=== PATIENT | female | born 1985 | race Caucasian/White ===

== ENCOUNTER 2016-06-14 18:48 | Emergency (ER) | payer BC ==
[2016-06-14 19:08] VITALS: BP 118/55
--- NOTE | 2016-06-14 19:16 | UC ---
Throat Pain/Nasal Jimmy HPI - HPI Summary HPI Summary: RIGHT EAR PAIN AND SORE THROAT X 2 DAYS NO NASAL CONGESTION , NO FEVER, NO COUGH - History of Current Complaint Chief Complaint: UCGeneralIllness Stated Complaint: SORE THROAT/EAR PAIN Time Seen by Provider: 06/14/16 18:50 Hx Obtained From: Patient Hx Last Menstrual Period: 13 MONTHS POST- Onset/Duration: Gradual Onset, Lasting Days - 2, Still Present Severity: Moderate Cough: None Associated Signs & Symptoms: Negative: Wheezing, Hoarseness, Sinus Discomfort, Nasal Discharge, Fever, Vomiting, Rash - Allergies/Home Medications Allergies/Adverse Reactions: Allergies Allergy/AdvReac Type Severity Reaction Status Date / Time Indomethacin [From Indocin] Allergy Severe Hallucinati Verified 06/14/16 19:08 ons Home Medications: Home Medications Sertraline* [Zoloft*] 75 mg PO DAILY 06/14/16 [History Confirmed 06/14/16] PMH/Surg Hx/FS Hx/Imm Hx Respiratory History Of: Reports: Asthma - as a kid Psychological History Of: Reports: Anxiety - Surgical History Surgical History: Yes Surgery Procedure, Year, and Place: wisdom teeth, r foot surgery - Family History Known Family History: Negative: Diabetes - Social History Alcohol Use: None Substance Use Type: None Smoking Status (MU): Never Smoked Tobacco Type: Cigarettes Have You Smoked in the Last Year: No - Immunization History Most Recent Influenza Vaccination: [id number] Most Recent Tetanus Shot: has not received Most Recent Pneumonia Vaccination: has not received Review of Systems Constitutional: Negative Skin: Negative Eyes: Negative ENT: Sore Throat, Ear Ache Respiratory: Negative Cardiovascular: Negative All Other Systems Reviewed And Are Negative: Yes Physical Exam Triage Information Reviewed: Yes Appearance: Well-Appearing, No Pain Distress, Well-Nourished Vital Signs: Initial Vital Signs Temp 98.1 F 06/14/16 19:04 Pulse 80 06/14/16 19:04 Resp 17 06/14/16 19:04 BP 118/55 06/14/16 19:04 Pulse Ox 100 06/14/16 19:04 Vital Signs Reviewed: Yes Eyes: Positive: Conjunctiva Clear ENT: Positive: Normal ENT inspection, Hearing grossly normal, Pharyngeal erythema, TMs normal. Negative: Nasal congestion, Nasal drainage, TM bulging, TM dull, TM red Neck exam: Normal Neck: Positive: Supple, Nontender, No Lymphadenopathy Respiratory: Positive: Chest non-tender, Lungs clear, Normal breath sounds, No respiratory distress Cardiovascular: Positive: RRR, No Murmur, Pulses Normal Skin Exam: Normal Throat Pain/Nasal Course/Dx - Differential Dx/Diagnosis Provider Diagnoses: VIRAL PHARYNGITIS. OTALGIA Discharge - Discharge Plan Condition: Stable Disposition: HOME Patient Education Materials: Earache (ED) Referrals: Iris Borja MD [Primary Care Provider] - If Needed Additional Instructions: MOST LIKELY VIRAL ILLNESS, NO NEED FOR ANTIBIOTICS REST, INCREASE FLUID, TYLENOL NEEDED FOR PAIN
== END 2016-06-14 19:18 | disposition home or self-care (01) ==
LOC: UCCORT 18:48
DX: J02.9 Acute pharyngitis, unspecified (principal); H92.01 Otalgia, right ear; F41.9 Anxiety disorder, unspecified
CPT/HCPCS: 99211; G0463

== ENCOUNTER 2016-06-22 16:07 | Emergency (ER) | payer BC ==
[2016-06-22 16:27] VITALS: BP 117/58
--- NOTE | 2016-06-22 16:36 | UC ---
Respiratory Complaint HPI - HPI Summary HPI Summary: Cough, h/a, ear pain x2 weeks. Was seen here last weekend, dx w/ viral. Pt is 29 weeks . 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 Feels some sinus pain and pressure. Had been seen by OB 2 days after being seen here and was told to take mucinex and anti-histamine which have not given any relief. No fever. + movement, no blood. cough is worsening, feels mild possibel wheezing. 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 no complications with . - History of Current Complaint Chief Complaint: UCGeneralIllness Stated Complaint: cough,upper respiratory Time Seen by Provider: 06/22/16 16:35 Hx Last Menstrual Period: 11/2015 - Allergies/Home Medications Allergies/Adverse Reactions: Allergies Allergy/AdvReac Type Severity Reaction Status Date / Time Indomethacin [From Indocin] Allergy Severe Hallucinati Verified 06/22/16 16:21 ons Home Medications: Home Medications Acetaminophen TAB* [Tylenol TAB*] 975 mg PO Q4H PRN 06/22/16 [History Confirmed 06/22/16] Cetirizine* [ZyrTEC 10 MG TAB*] 10 mg PO DAILY 06/22/16 [History Confirmed 06/22] guaiFENesin ER TAB [Mucinex*] 600 mg PO BID PRN 06/22/16 [History Confirmed ] PMH/Surg Hx/FS Hx/Imm Hx Previously Healthy: Yes Respiratory History Of: Reports: Asthma - as a kid Psychological History Of: Reports: Anxiety - Surgical History Surgical History: Yes Surgery Procedure, Year, and Place: wisdom teeth, r foot surgery - Family History Known Family History: Negative: Diabetes - Social History Alcohol Use: None Substance Use Type: None Smoking Status (MU): Never Smoked Tobacco Type: Cigarettes Have You Smoked in the Last Year: No - Immunization History Most Recent Influenza Vaccination: [id number] Most Recent Tetanus Shot: has not received Most Recent Pneumonia Vaccination: has not received Review of Systems Constitutional: Negative Skin: Negative Eyes: Negative ENT: Sore Throat, Ear Ache, Nasal Discharge, Other - sinus pressure Respiratory: Cough Cardiovascular: Negative Gastrointestinal: Negative Genitourinary: Negative Motor: Negative Neurovascular: Negative Musculoskeletal: Negative Neurological: Negative Psychological: Negative All Other Systems Reviewed And Are Negative: Yes Physical Exam Triage Information Reviewed: Yes Appearance: Well-Appearing, No Pain Distress, Well-Nourished Vital Signs: Initial Vital Signs Temp 97.6 F 06/22/16 16:22 Pulse 75 06/22/16 16:22 Resp 16 06/22/16 16:22 BP 117/58 06/22/16 16:22 Pulse Ox 99 06/22/16 16:22 Vital Signs Reviewed: Yes Eye Exam: Normal ENT Exam: Normal ENT: Positive: Pharyngeal erythema, TMs normal, Other: - + sinus tenderness frontal/maxillary. Negative: TM bulging, TM dull, TM red, Tonsillar swelling, Tonsillar exudate Dental Exam: Normal Neck exam: Normal Neck: Positive: Supple, Nontender, No Lymphadenopathy Respiratory Exam: Normal Respiratory: Positive: Lungs clear, Normal breath sounds, No respiratory distress, Decreased breath sounds - mild. Negative: Crackles, Rhonchi, Stridor , Wheezing Cardiovascular Exam: Normal Cardiovascular: Positive: RRR, No Murmur, Pulses Normal, Brisk Capillary Refill Abdomen Description: Positive: Nontender, Soft - gravid Musculoskeletal Exam: Normal Neurological Exam: Normal Psychological Exam: Normal Skin Exam: Normal UC Diagnostic Evaluation - Laboratory O2 Sat by Pulse Oximetry: 99 Respiratory Course/Dx - Differential Dx/Diagnosis Differential Diagnosis/HQI/PQRI: Asthma, Bronchitis, Lower Resp Infection, Sinusitis Provider Diagnoses: Bronchitis, sinusitis, Discharge - Discharge Plan Condition: Stable Disposition: HOME Prescriptions: Albuterol HFA INHALER* [Ventolin HFA Inhaler*] 2 puff INH Q4H PRN #1 mdi PRN Reason: Cough Amoxicillin (*) [Amoxicillin 875 MG (*)] 875 mg PO BID #20 tab Patient Education Materials: Sinusitis (ED), Acute Bronchitis (ED) Forms: *Work Release Referrals: Iris Borja MD [Primary Care Provider] - 3 Days Additional Instructions: Continue with plenty of fluids and rest. Make sure that the baby is moving at least 10 time per hour. The inhaler will help the cough. Make sure to take a probiotic daily while you are on the antibiotic to prevent c diff.
== END 2016-06-22 17:06 | disposition home or self-care (01) ==
LOC: UCCORT 16:07
DX: O26.93 Pregnancy related conditions, unspecified, third trimester (principal); J40 Bronchitis, not specified as acute or chronic; J32.9 Chronic sinusitis, unspecified; Z3A.29 29 weeks gestation of pregnancy; F41.9 Anxiety disorder, unspecified
CPT/HCPCS: 99212; G0463

== ENCOUNTER 2016-07-19 15:47 | Emergency (ER) | payer BC ==
[2016-07-19 17:35] VITALS: BP 132/72
--- NOTE | 2016-07-19 18:18 | UC ---
Respiratory Complaint HPI - History of Current Complaint Chief Complaint: UCRespiratory Stated Complaint: FLU SYMPTOMS 18 WEEKS Hx Obtained From: Patient Hx Last Menstrual Period: NOV 2015 ?: Yes Onset/Duration: Sudden Onset, Lasting Days - 1, Worse Since - today with increased congestion. Had coughing fits last night. Timing: Constant Severity Initially: Mild Severity Currently: Moderate Character: Cough: Productive Aggravating Factors: Allergens Alleviating Factors: Nothing Associated Signs And Symptoms: Positive: Chills, URI, Nasal Congestion Related History: Seasonal Allergies - Risk Factors Pulmonary Embolism Risk Factors: Cardiac Risk Factors: Negative Pseudomonas Risk Factors: Negative Tuberculosis Risk Factors: Negative - Allergies/Home Medications Allergies/Adverse Reactions: Allergies Allergy/AdvReac Type Severity Reaction Status Date / Time Indomethacin [From Indocin] Allergy Severe Hallucinati Verified 07/19/16 17:21 ons PMH/Surg Hx/FS Hx/Imm Hx Respiratory History Of: Reports: Asthma - as a kid Psychological History Of: Reports: Anxiety - Surgical History Surgical History: Yes Surgery Procedure, Year, and Place: wisdom teeth, r foot surgery - Family History Known Family History: Positive: Cardiac Disease, Hypertension, Diabetes - Social History Occupation: Employed Full-time Lives: With Family Alcohol Use: None Substance Use Type: None Smoking Status (MU): Never Smoked Tobacco Type: Cigarettes Have You Smoked in the Last Year: No - Immunization History Most Recent Influenza Vaccination: [id number] Most Recent Tetanus Shot: has not received Most Recent Pneumonia Vaccination: has not received Review of Systems Constitutional: Chills ENT: Sore Throat, Nasal Discharge Respiratory: Cough All Other Systems Reviewed And Are Negative: Yes Physical Exam Triage Information Reviewed: Yes Appearance: No Pain Distress, Well-Nourished - , Ill-Appearing Vital Signs: Initial Vital Signs Temp 98.2 F 07/19/16 17:23 Pulse 62 07/19/16 17:23 Resp 20 07/19/16 17:23 BP 132/72 07/19/16 17:23 Pulse Ox 99 07/19/16 17:23 Vital Signs Reviewed: Yes Eyes: Positive: Conjunctiva Clear ENT: Positive: Nasal congestion - with allergic changes., TMs normal Neck exam: Normal Respiratory: Positive: Lungs clear, Wheezing - expiratory wheeze with cough Cardiovascular Exam: Normal Abdomen Description: Positive: Nontender - Gravid, fetus vertex presentation. FHT 120 bpm, Soft Musculoskeletal Exam: Normal Neurological Exam: Normal Psychological Exam: Normal Skin Exam: Normal UC Diagnostic Evaluation - Laboratory O2 Sat by Pulse Oximetry: 99 Respiratory Course/Dx - Differential Dx/Diagnosis Differential Diagnosis/HQI/PQRI: Asthma, Lower Resp Infection, Sinusitis Provider Diagnoses: Acute URI. Acute bronchospasm. Allergic rhinitis Discharge - Discharge Plan Condition: Stable Disposition: HOME Prescriptions: predniSONE TAB* [Deltasone TAB*] 20 mg PO DAILY #18 tab Patient Education Materials: Upper Respiratory Infection (ED), Bronchospasm (ED ), Prednisone (By mouth), Allergic Rhinitis (ED) Additional Instructions: NASAL SPRAYS AND DROPS: Afrin in the PUMP/ MIST bottle. Tilt your head down and look at the floor while doing a strong sniff with the spray. Decongestant nasal sprays and drops often give dramatic relief from congestion. They are often recommended for patients with sinus infection to assist with sinus drainage. Persons with high blood pressure should consult the doctor before using these nasal sprays. Afrin and Piotr-Synephrine are common [id number] preparations. They should not be used for more than five days, as "rebound" congestion can occur - - the congestion flares as the drug wears off. A way of dealing with this rebound congestion problem is to medicate only one nostril each time, allowing the other nostril to recover from the medicine' s effects. When you no longer need the drug during the day, spray only one nostril each night. This helps you sleep well without severe rebound congestion. Call the doctor if you develop severe headache, palpitations, or chest pain. Lumafit SINUS RINSE: CHECK OUT AT [employer] [place] Saline nasal wash helps with mucous, allergies and congestion. It can be used up to twice a day or only as needed. Use lukewarm tap water. It does not have to be sterilized or distilled water. Do 1/3 on each side and snort out of both nostrils. Repeat the process with 1/6 of the bottle on each side with snorting in between to finish the solution in the bottle
== END 2016-07-19 18:50 | disposition home or self-care (01) ==
LOC: UCCORT 15:47
DX: O26.892 Other specified pregnancy related conditions, second trimester (principal); J06.9 Acute upper respiratory infection, unspecified; J98.01 Acute bronchospasm; J30.9 Allergic rhinitis, unspecified; Z3A.18 18 weeks gestation of pregnancy; F41.9 Anxiety disorder, unspecified
CPT/HCPCS: 87502; 99212; G0463

== ENCOUNTER 2016-08-30 01:58 | Inpatient (IN) | payer BC ==
[2016-08-30] MEDS ORDERED: OBEPIDURAL* 0 ML ONE (03:55)
[2016-08-30 04:23] LABS: Hematocrit 37 % (35-47); Hemoglobin 12.6 g/dl (12.0-16.0); Mean Corpuscular HGB Conc 34 g/dl (31-36); Mean Corpuscular Hemoglobin 30 pg (27-31); Mean Corpuscular Volume 88 fL (80-97); Mean Platelet Volume 9 um3 (7.4-10.4); Red Blood Count 4.22 10^6/ul (4.0-5.4); Red Cell Distribution Width 14 % (10.5-15); White Blood Count 12.5 10^3/ul (3.5-10.8)
[2016-08-30] MEDS ORDERED: Oxytocin in LR* 20 UNITS/1,000 ML BAG IVPB ONE (04:54)
[2016-08-30] MEDS ORDERED: Acetaminophen TAB* 325 MG PO PRN (05:46)
[2016-08-30] MEDS ORDERED: Dibucaine 1% 28.35 GM TUBE PR PRN (05:46)
[2016-08-30] MEDS ORDERED: Witch Hazel PAD* JAR TOPICAL PRN (05:46)
[2016-08-30] MEDS ORDERED: Ibuprofen TAB* 600 MG ONE (05:50)
[2016-08-30] MEDS ORDERED: oxyCODONE/Acetamin 5/325 MG* TAB PO PRN (05:52)
[2016-08-30] MEDS ORDERED: Oxytocin in LR* 20 UNITS/1,000 ML BAG IVPB SCH (06:00)
[2016-08-30] MEDS: Ibuprofen TAB* 600 MG PO PRN ×3 (06:05→17:54)
[2016-08-30] MEDS: Sertraline* 25 MG TAB PO SCH (09:00)
[2016-08-30] MEDS: Docusate CAP* 100 MG PO SCH ×3 (09:00→20:02)
[2016-08-30 23:47] VITALS: BP 135/71
[2016-08-31] MEDS: Ibuprofen TAB* 600 MG PO PRN ×2 (08:51→15:45)
[2016-08-31] MEDS: Docusate CAP* 100 MG PO SCH ×3 (08:51→20:09)
[2016-08-31] MEDS: Sertraline* 25 MG TAB PO SCH (08:52)
[2016-08-31] MEDS ORDERED: Ferrous Gluconate TAB* 324 MG TAB PO SCH (09:00)
[2016-08-31 10:04] LABS: Hematocrit 36 % (35-47); Hemoglobin 11.7 g/dl (12.0-16.0); Mean Corpuscular HGB Conc 33 g/dl (31-36); Mean Corpuscular Hemoglobin 30 pg (27-31); Mean Corpuscular Volume 91 fL (80-97); Mean Platelet Volume 9 um3 (7.4-10.4); Red Blood Count 3.92 10^6/ul (4.0-5.4); Red Cell Distribution Width 14 % (10.5-15); White Blood Count 11.8 10^3/ul (3.5-10.8)
[2016-09-01] MEDS: Ibuprofen TAB* 600 MG PO PRN (08:22)
[2016-09-01] MEDS: Sertraline* 25 MG TAB PO SCH (08:23)
[2016-09-01] MEDS: Docusate CAP* 100 MG PO SCH (08:24)
== END 2016-09-01 09:58 | disposition home or self-care (01) | DRG 560 ==
LOC: MCHOBOUT 01:58 → MCHOB 02:49
PROVIDERS: ADMIT Midwife; ATTEND Midwife
PROC: 10E0XZZ Delivery of Products of Conception, External Approach (ICD-10-PCS; principal; 2016-08-30)
PROC: 0HQ9XZZ Repair Perineum Skin, External Approach (ICD-10-PCS; 2016-08-30)
DX: O77.0 Labor and delivery complicated by meconium in amniotic fluid (principal); O99.344 Other mental disorders complicating childbirth; F41.9 Anxiety disorder, unspecified; O70.0 First degree perineal laceration during delivery; Z3A.39 39 weeks gestation of pregnancy; Z37.0 Single live birth
CPT/HCPCS: 36415; 85025; 85027; 86850; 86900; 86901; A9270-GY

== ENCOUNTER 2017-03-01 11:14 | Emergency (ER) | payer BC ==
--- NOTE | 2017-03-01 11:22 | UC ---
Ear Complaint HPI - HPI Summary HPI Summary: 31 YEAR OLD FEMALE PRESENTS WITH COMPLAINS OF SINUS CONGESTION. - History of Current Complaint Stated Complaint: EAR ACHE Time Seen by Provider: 03/01/17 11:22 Hx Obtained From: Patient Hx Last Menstrual Period: NOV 2015 Onset/Duration: Sudden Onset Severity Initially: Moderate Severity Currently: Moderate Pain Scale Used: 0-10 Numeric - 5 Aggravating Factors: Nothing Alleviating Factors: Nothing - Allergies/Home Medications Allergies/Adverse Reactions: Allergies Allergy/AdvReac Type Severity Reaction Status Date / Time Indomethacin [From Indocin] Allergy Severe Hallucinati Verified 03/01/17 11:24 ons PMH/Surg Hx/FS Hx/Imm Hx Previously Healthy: Yes - Surgical History Surgical History: Yes Surgery Procedure, Year, and Place: wisdom teeth, r foot surgery - Family History Known Family History: Positive: Cardiac Disease, Hypertension, Diabetes - Social History Alcohol Use: None Substance Use Type: None Smoking Status (MU): Former Smoker Type: Cigarettes Have You Smoked in the Last Year: No Household Exposure Type: Cigarettes - Immunization History Most Recent Influenza Vaccination: [id number] Most Recent Tetanus Shot: has not received Most Recent Pneumonia Vaccination: has not received Review of Systems Constitutional: Negative Skin: Negative Eyes: Negative ENT: Ear Ache, Nasal Discharge, Sinus Congestion, Sinus Pain/Tenderness Respiratory: Negative Cardiovascular: Negative Gastrointestinal: Negative Genitourinary: Negative Motor: Negative Neurovascular: Negative Musculoskeletal: Negative Neurological: Negative Psychological: Negative All Other Systems Reviewed And Are Negative: Yes Physical Exam Triage Information Reviewed: Yes Vital Signs Reviewed: Yes Eye Exam: Normal ENT: Positive: Nasal congestion, Nasal drainage, Tonsillar swelling, Sinus tenderness Dental Exam: Normal Neck exam: Normal Neck: Positive: 1 Respiratory Exam: Normal Cardiovascular Exam: Normal Abdominal Exam: Normal Musculoskeletal Exam: Normal Neurological Exam: Normal Psychological Exam: Normal Skin Exam: Normal Ear Complaint Course/Dx - Differential Dx/Diagnosis Provider Diagnoses: SINUSITIS Discharge - Discharge Plan Condition: Stable Disposition: HOME Prescriptions: Amoxicillin PO (*) [Amoxicillin 875 MG (*)] 875 mg PO BID #20 tab Fluticasone NASAL SPRAY 50MCG* [Flonase NASAL SPRAY 50MCG*] 2 spray BOTH NARES DAILY PRN #1 btl PRN Reason: Congestion LoraTADine TAB(NF) [Claritin 10 MG TAB(NF)] 10 mg PO DAILY #30 tab Patient Education Materials: Sinusitis (ED) Referrals: Iris Borja MD [Primary Care Provider] -
[2017-03-01 11:30] VITALS: BP 115/60
== END 2017-03-01 12:06 | disposition home or self-care (01) ==
LOC: UCEAST 11:14
DX: J32.9 Chronic sinusitis, unspecified (principal); H92.09 Otalgia, unspecified ear; Z88.6 Allergy status to analgesic agent; Z87.891 Personal history of nicotine dependence
CPT/HCPCS: 99212; G0463

== ENCOUNTER → 2017-08-25 08:10 | Day surgery (SDC) | payer BC ==
[~2017-08-25 08:10] MED LIST: Acetaminophen TAB* 325 MG ONE; Acetaminophen TAB* 325 MG PO PRN; Atracurium* 10 MG/ML 10 ML VIAL ONE; Atropine 1MG/ML INJ* 1 ML VIAL ONE; Bacitracin OPHTH.OINT* 3.5 GM ONE; Buffered Lidocaine 0.9% SYRIN* 5 ML/SYR SYRINGE INTRADERM ONE; Bupivacaine 0.5% SDV PF* 30ML VIAL ONE; Dexamethasone IV* 4 MG/ML 1 ML (4 MG) ONE; DiMENhydriNATE IV* 50 MG/ML VIAL IV PUSH PRN; Ibuprofen TAB* 400 MG ONE; Ibuprofen TAB* 400 MG PO ONE; Ketorolac INJ* 30 MG/ML 1 ML VIAL ONE; Lidocaine 2% PF * 5 ML VIAL ONE; Naloxone* 0.4 MG/ML 1 ML VIAL IV PRN; Neostigmine Methylsulfate* 1 MG/ML 10 ML VIAL (1 mg/ml) ONE; Ondansetron INJ* 2 MG/ML VIAL IV PRN; Propofol* 10 MG/ML 20 ML BTL IV PUSH ONE; Saline, Bacteriostatic* 30 ML VIAL ONE; Scopolamine 1.5 mg* PATCH ONE; Scopolamine 1.5 mg* PATCH TRANSDERM ONE; Scopolamine PATCH Remove* 1 NOTE MISC PATCH OFF ONE; Sodium Citrate/Citric Acid* 15 ML UDC ONE; Sodium Citrate/Citric Acid* 15 ML UDC PO ONE; ceFAZolin 2 GM PREMIX (*) 2 GM/50 ML BAG IVPB ONE; fentaNYL* 50 MCG/ML 2 ML VIAL (100 MCG VIAL) IV PRN; fentaNYL* 50 MCG/ML 2 ML VIAL (100 MCG VIAL) ONE; oxyCODONE TAB* 5 MG TAB ONE; oxyCODONE TAB* 5 MG TAB PO PRN
--- NOTE | 2017-08-25 11:10 | OP ---
Operative Report - Blank - Operative Report Date of Operation: 08/25/17 Note: preoperative dx: calculus of gallbladder without cholecystitis without obstruction postoperative dx: same procedure: laparoscopic cholecystectomy anesthesia: GET surgeon: Hardeep assist: Bebe Carrillo ebl: less than 20cc specimen: gallbladder fluids: 1L lactated ringers drains: none findings: dictated
[2017-08-25 12:39] VITALS: BP 117/64
--- NOTE | 2017-08-26 08:25 | OP ---
CC: Iris Borja MD * DATE OF OPERATION: 08/25/17 - [facility] DATE OF : 85 SURGEON: Toribio Meier MD AERIAL PHOTOGRAPHER: MANDI Byrnes ANESTHESIOLOGIST: Dr. Cabrales. ANESTHESIA: General endotracheal. PRE-OP DIAGNOSIS: Symptomatic gallstones. POST-OP DIAGNOSIS: Symptomatic gallstones. OPERATIVE PROCEDURE: Laparoscopic cholecystectomy. ESTIMATED BLOOD LOSS: Minimal. IV FLUIDS: Crystalloids. SPECIMENS: Gallbladder. DRAINS: None. COMPLICATIONS: None. COUNTS: Instrument, needle, and sponge counts were correct. DESCRIPTION OF PROCEDURE: The patient was brought to the operating room and placed on the table supine. Sequential compression devices were placed on both lower extremities. General anesthesia was administered. The abdomen was prepped and draped in the usual sterile fashion. Time-out was performed. Local anesthetic was infiltrated into the skin and soft tissue prior to making each incision. Entry into the abdomen was through a transumbilical incision using an open technique. After accessing the peritoneal cavity, a 5-mm trocar was placed and carbon dioxide was insufflated to a pressure of 15 mmHg. Under direct visualization, additional trocars were placed including a 12-mm trocar in the subxiphoid position and two 5-mm trocars in the right upper quadrant. The liver appeared normal. The gallbladder appeared to be chronically inflamed with no acute inflammation, wall thickening or pericholecystic fluid noted. There was adhesions of omentum to the gallbladder fundus, which were taken down using combination of sharp dissection and cautery. The gallbladder fundus was grasped and retracted superiorly and then the infundibulum was grasped and retracted caudad. The peritoneum and rest of the infundibulum was incised with cautery and peeled away to reveal the cystic duct, which was bluntly dissected out as was the cystic artery. Critical view was obtained and then the structures were clipped and divided and the gallbladder was freed from attachments to the liver using the cautery and sharp dissection. Subsequently, the gallbladder was retrieved using endoscopic retrieval bag. Hemostasis was assured. Clips were noted to be intact. Ports removed under direct visualization and carbon dioxide was released. The skin incisions were all closed with 4-0 Monocryl in subcuticular fashion and Steri-Strips were applied. The patient tolerated this procedure well, was extubated and transferred to Recovery in stable condition. [id number]/[facility] #: [id number] DOTTIE
== END | disposition home or self-care (01) ==
LOC: OR 08:10
PROVIDERS: ATTEND Surgery
DX: K81.1 Chronic cholecystitis (principal); Z72.0 Tobacco use; G47.33 Obstructive sleep apnea (adult) (pediatric); F32.9 Major depressive disorder, single episode, unspecified; R53.83 Other fatigue
CPT/HCPCS: 81025; 88304; A9270-GY; J0461; J0690; J1100; J1885; J2704; J2710; J3010

== ENCOUNTER 2017-09-07 16:59 | Emergency (ER) | payer BC ==
[2017-09-07 17:13] VITALS: BP 127/69
--- NOTE | 2017-09-07 17:30 | UC ---
Hand/Wrist HPI - HPI Summary HPI Summary: 31 yo female presents with right hand pain and swelling since this morning. 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 This morning she woke up and her right hand was swollen, mildly warm, and tender. As the day progressed it got worse. She took some ibuprofen and benadryl and thinks it has improved, but wanted to have it checked. Denies injury or contact with any new materials. - History Of Current Complaint Chief Complaint: UCUpperExtremity Stated Complaint: SWOLLEN HAND Time Seen by Provider: 09/07/17 17:30 Hx Obtained From: Patient Hx Last Menstrual Period: one month ago Onset/Duration: Sudden Onset Severity Initially: Mild Severity Currently: Mild Pain Intensity: 2 Pain Scale Used: 0-10 Numeric - Allergies/Home Medications Allergies/Adverse Reactions: Allergies Allergy/AdvReac Type Severity Reaction Status Date / Time indomethacin [From Indocin] Allergy Hallucinati Verified 09/07/17 17:13 ons PMH/Surg Hx/FS Hx/Imm Hx Previously Healthy: Yes Psychological History: Anxiety - Surgical History Surgical History: Yes Surgery Procedure, Year, and Place: wisdom teeth-[facility]. RIGHT foot surgery-[facility]. Gallbladder 08/25/17 - Family History Known Family History: Positive: Cardiac Disease, Hypertension, Diabetes - Social History Occupation: Employed Full-time Lives: With Family Alcohol Use: None Substance Use Type: Prescribed Smoking Status (MU): Former Smoker Type: Cigarettes Amount Used/How Often: ON AND OFF SINCE 2003 Have You Smoked in the Last Year: No Household Exposure Type: Cigarettes - Immunization History Most Recent Influenza Vaccination: [id number] Most Recent Tetanus Shot: has not received Most Recent Pneumonia Vaccination: has not received Review of Systems Constitutional: Negative Skin: Other - Right hand pain and swelling Respiratory: Negative Cardiovascular: Negative Musculoskeletal: Negative Neurological: Negative Psychological: Negative All Other Systems Reviewed And Are Negative: Yes Physical Exam - Summary Physical Exam Summary: GENERAL: NAD. WDWN. No pain distress. SKIN: Right hand: Moderate edema about right hand. Mild warmth. No open wounds. No streaking, bleeding, or drainage. NECK: Supple. Nontender. No lymphadenopathy. CHEST: No accessory muscle use. Breathing comfortably and in no distress. CV: Pulses intact radial and ulnar. MSK: FROM. Strength 5/5 with fitness specialist strength. NEURO: Alert. Sensations intact right hand and all fingers. PSYCH: Age appropriate behavior. Triage Information Reviewed: Yes Vital Signs: Initial Vital Signs Temp 98.5 F 09/07/17 17:10 Pulse 56 09/07/17 17:10 Resp 18 09/07/17 17:10 BP 127/69 09/07/17 17:10 Pulse Ox 100 09/07/17 17:10 Hand/Wrist Course/Dx - Course Course Of Treatment: Right hand cellulitis - keflex. Continue ibuprofen and benadryl - Differential Dx/Diagnosis Provider Diagnoses: Right hand cellulitis Discharge - Sign-Out/Discharge Documenting (check all that apply): Discharge/Admit/Transfer - Discharge Plan Condition: Stable Disposition: HOME Prescriptions: Cephalexin CAP* [Keflex CAP*] 500 mg PO BID #14 cap Patient Education Materials: Cellulitis (DC) Referrals: Iris Borja MD [Primary Care Provider] - Additional Instructions: If you develop a fever, shortness of breath, chest pain, new or worsening symptoms - please call your PCP or go to the ED. - Billing Disposition and Condition Condition: STABLE Disposition: Home
== END 2017-09-07 18:15 | disposition home or self-care (01) ==
LOC: UCEAST 16:59
DX: L03.113 Cellulitis of right upper limb (principal); Z88.6 Allergy status to analgesic agent; Z87.891 Personal history of nicotine dependence
CPT/HCPCS: 99212; G0463

== ENCOUNTER 2017-09-30 12:41 | Emergency (ER) | payer BC, OTHER ==
--- OUTSIDE RECORDS SUMMARY | 2017-09-30 14:22 | XMS REPORT ---
:1985 External Reference #:[id number] Author Organization [employer] Address [address] [place] [address] [place] [address] Phone [phone] Care Team Providers Name Role Phone Iris Borja MD Primary Care Physician Unavailable Payers Type Date Identification Numbers Payment Provider Subscriber Commercial Policy Number: [id number] BS [employer]ets Melany Falk PayID: [id number] [address] [address] [place] [address] Problems Date Description Provider Status Onset: 12/20/2015 Difficulty breathing Delilah Pat MD Active Onset: 12/20/2015 Hypersomnia, unspecified Delilah Pat MD Active Family History Date Family Member(s) Problem(s) Comments General Diabetes MGF General Heart Disease MGF Father Diabetes Mother Kidney Disease Mother Sleep Apnea Mother Breast Cancer Social History Type Date Description Comments Marital Status 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 Cigarette Use Occasionally Smokes Cigarettes ETOH Use Occasionally consumes alcohol Recreational Drug Use Denies Drug Use Smoking Patient is a former smoker 2017 Daily Caffeine Consumes on average 1 cup of regular coffee per day Exercise Type/Frequency Exercises rarely Walks at work, 5x per week Allergies, Adverse Reactions, Alerts Date Description Reaction Status Severity Comments 12/20/2015 Indocin active Medications Medication Date Status Form Strength Qnty SIG Indications Ordering Provider Zoloft Active Tablets 75mg 1 tab daily Unknown 016 1 by mouth every day 19 Hx Tablets 1 by mouth Unknown 016 every day Probiotic Hx Capsules 1 by mouth Unknown 016 every day Adrenal C Hx Tablets as directed Unknown Formula 016 Vitamin B-12 Hx Tablets Sub 1 by mouth Unknown 016 every day Probiotic 00/0 Hx Capsules 1 Unknown Daily 000 by mouth every day [place] 0 Hx 2 daily Unknown Lectin 000 Fenugreek 0 Hx Capsules three tabs Unknown 000 three times a day Vital Signs Date Vital Result Comment 09/03/2017 Heart Rate 90 /min BP Systolic Sitting 126 mmHg BP Diastolic Sitting 72 mmHg Respiratory Rate 18 /min Body Temperature 97.6 F 08/03/2017 Height 67 inches 5'7" Weight 215.00 lb Heart Rate 64 /min BP Systolic 126 mmHg BP Diastolic 70 mmHg Respiratory Rate 16 /min Body Temperature 97.3 F BMI (Body Mass Index) 33.7 kg/m2 02/11/2017 Height 67 inches 5'7" Weight 214.38 lb Heart Rate 70 /min BP Systolic Sitting 120 mmHg Lue large cuff BP Diastolic Sitting 72 mmHg Lue large cuff Respiratory Rate 16 /min O2 % BldC Oximetry 98 % On Ra BMI (Body Mass Index) 33.6 kg/m2 12/25/2016 Heart Rate 72 /min BP Systolic Sitting 130 mmHg BP Diastolic Sitting 80 mmHg Respiratory Rate 16 /min Body Temperature 98.0 F 10/03/2016 Height 67 inches 5'7" Weight 208.00 lb Heart Rate 74 /min BP Systolic Sitting 108 mmHg BP Diastolic Sitting 74 mmHg Respiratory Rate 20 /min O2 % BldC Oximetry 98 % room air BMI (Body Mass Index) 32.6 kg/m2 07/09/2016 Height 67 inches 5'7" Weight 224.00 lb Heart Rate 84 /min BP Systolic 130 mmHg BP Diastolic 80 mmHg Respiratory Rate 18 /min Body Temperature 97.2 F BMI (Body Mass Index) 35.1 kg/m2 01/30/2016 Height 67 inches 5'7" Weight 200.00 lb Heart Rate 74 /min BP Systolic Sitting 130 mmHg BP Diastolic Sitting 70 mmHg Respiratory Rate 16 /min O2 % BldC Oximetry 98 % BMI (Body Mass Index) 31.3 kg/m2 12/20/2015 Height 67 inches 5'7" Weight 194.00 lb Heart Rate 74 /min BP Systolic Sitting 126 mmHg BP Diastolic Sitting 78 mmHg Respiratory Rate 14 /min O2 % BldC Oximetry 98 % BMI (Body Mass Index) 30.4 kg/m2 Neck Circumference in inches 14 Results Test Date Test Result H/L Range Note Laboratory test 08/25/2017 Surgical Pathology SEE RESULT BELOW 1 finding 1 SEE RESULT BELOW Name: MEALNY FALK : [address]: Toribio Meier MD Acct: [id number] Unit: [id number] AGE: 31 Location: OR Re08/25/17 SEX: F Status: REG SDC SPEC: [id number] MATHEW: 08/25/17- SUBM DR: Toribio Meier MD REQ: [id number] RECD: 08/25/171205 STATUS: SOUT _ ORDERED: LEVEL 3 FINAL DIAGNOSIS Gallbladder, cholecystectomy: -- Chronic cholecystitis with polypoid cholesterolosis. -- No cholelithiasis identified. PRE-OPERATIVE DIAGNOSIS Gallstones GROSS DESCRIPTION The specimen is received in formalin labeled, Gallbladder, and consists of a 10.1 x 3.4 x 3.3 cm intact gallbladder. The serosa is glistening smooth purple-pink with scant adherent yellow fat. There are multiple yellow sessile mucosal polyps ranging from 0.1 cm to 0.5 cm in greatest dimension. The remaining mucosa is reticulated brown with abundant yellow stippling and the wall thickness averages 0.1 cm. Choleliths are not identified within the lumen or the container. Medical Nurse sections, one cassette. Signed by and Reported on: Migue Velazquez MD 1721 END OF REPORT DEPARTMENT OF PATHOLOGY, [address] [place] [address] Migue Velazquez M.D. Director [facility] # [id number] Procedures Date CPT Code Description Status 08/25/2017 20821 Laparoscopy Cholecystectomy Completed 08/25/2017 69773 Laparoscopy Cholecystectomy Completed 03/05/2016 49353 Polysomnography Sleep Staging 4+ Parameters Completed 01/08/2016 89079 Sleep Study Unattended,HRT Rate,Oxygen Sat,Resp Completed Effort/Airflow Encounters Type Date Location Provider CPT E/M Dx Office Visit 08/03/2017 [facility] [place], [address] K80.20 8:30a [facility] FACS Office Visit 02/11/2017 [facility] [address] G47.33 9:15a [facility] Office Visit 12/25/2016 [facility] [place], [address] K80.20 8:45a [facility] FACS Office Visit 10/03/2016 Pul[facility]ology And Sleep Mely Butts, [address]71 G47.33 11:30a [facility] [place], [facility]- G47.10 Office Visit 07/09/2016 3:45p [facility] [place], [address] K80.20 [facility] FACS K82.4 Office Visit 01/30/2016 8:45a Pul[facility]ology And Sleep Mely Butts, 88887 R06.83 [facility] [place], [employer]-BC G47.10 F41.9 Z33.1 Office Visit 12/20/2015 11:00a [facility] [address] R06.83 [facility] G47.10 E66.09 Z68.30 Plan of Care 09/03/2017 - Toribio Meier MD, FACSK82.4 Cholesterolosis of gallbladderFollow up :As needed
[2017-09-30 14:27] VITALS: BP 132/89
--- NOTE | 2017-09-30 15:15 | RAD ---
HISTORY: injury, shoulder injury COMPARISONS: None VIEWS: 4, Frontal internal rotation, external rotation, outlet, and axillary views of the right shoulder FINDINGS: BONE DENSITY: Normal. BONES: There is no displaced fracture. There is a sclerotic lesion of the proximal humeral diaphysis measuring approximately 1.4 cm. JOINTS: There is no arthropathy. ALIGNMENT: There is no dislocation. SOFT TISSUES: Unremarkable. OTHER FINDINGS: None. IMPRESSION: SCLEROTIC LESION OF THE PROXIMAL HUMERUS SUGGESTIVE OF A GIANT BONE ISLAND. NO ACUTE OSSEOUS INJURY. IF SYMPTOMS PERSIST, RECOMMEND REPEAT IMAGING
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
== END 2017-09-30 15:57 | disposition home or self-care (01) ==
LOC: UCEAST 12:41
DX: S40.011A Contusion of right shoulder, initial encounter (principal); W50.0XXA Accidental hit or strike by another person, initial encounter; Y93.9 Activity, unspecified; Y92.215 Trade school as the place of occurrence of the external cause; Y99.0 Civilian activity done for income or pay; Z88.6 Allergy status to analgesic agent; Z82.49 Family history of ischemic heart disease and other diseases of the circulatory system; Z83.3 Family history of diabetes mellitus; Z87.891 Personal history of nicotine dependence
CPT/HCPCS: 84702; 99201; G0463

== ENCOUNTER 2018-12-22 20:47 | Emergency (ER) | payer BC ==
--- OUTSIDE RECORDS SUMMARY | 2018-12-22 20:52 | XMS REPORT | Continuity of Care Document ---
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 Onset: 12/01/2011 Viral disease Vince Storey M.D. Onset: 10/15/2013 Social History Type Date Description Comments Sex Unknown Tobacco Use Start: Unknown Nonsmoker Tobacco Use Start: Unknown Nonsmoker Smoking Status Reviewed: 12/07/17 Nonsmoker Allergies, Adverse Reactions, Alerts Active Allergies Reaction Severity Comments Date Indocin hallucinations 06/16/2011 Medications Active Medications SIG Qnty Indications Ordering Provider Date Trimethoprim 1-2 drops 10ml H10.89 Amaay 12/14/2018 Sulfate/Polymyxin B affected eye Tamar, REBA Sulfate four times a day x 3 days 31216-4.1Unit/ML-% Solution Zoloft 1 1/2 by mouth 135tabs Iris Walsh 50mg Tablets every day Reginaldo Borja Probiotic Unknown Berberine Complex Unknown [phone] Capsules Antril Unknown Medications Administered in Office Medication SIG Qnty Indications Ordering Provider Date TB Intradermal Test Unknown 09/21/2001 Injection TB Intradermal Test Unknown 05/30/2001 Injection Immunizations CPT Code Status Date Vaccine Lot # 18929 Given 12/14/2017 Influenza Vac, Quadriv[place], [place] [address] Given 10/15/2017 Meningococcal Conjugate Vaccine,Serogroups For [id number] Intramuscular Use 56651 Given 11/10/2013 DO Not Use Split Influenza Virus Vaccine 65315 Given 12/30/2011 DO Not Use Split Influenza Virus Vaccine 83320 Given 06/05/2000 Td Immunization, For Use In Individuals 7 Years Or Older 16213 Given 10/19/1997 Tetanus And Diptheria Adult Preservative Free >7Yrs 50000 Given 02/21/1997 Hepatitis B Immunization, [place]-19 Years 13086 Given 09/27/1996 Hepatitis B Immunization, [place]-19 Years 75877 Given 08/18/1996 Hepatitis B Immunization, [place]-19 Years 96802 Given 01/13/1991 Hib PRP-T Conjugate 4 Dose Schedule 99085 Given 09/12/1990 IPV Inactive Poliovirus Vaccine 34457 Given 08/04/1990 DTaP Immunization 26676 Given 08/04/1990 MMR Virus Immunization 04297 Given 01/10/1988 IPV Inactive Poliovirus Vaccine 88451 Given 01/10/1988 Hib PRP-T Conjugate 4 Dose Schedule 07838 Given 05/10/1987 DTaP Immunization 97846 Given 02/08/1987 MMR Virus Immunization 71125 Given 06/14/1986 IPV Inactive Poliovirus Vaccine 93748 Given 06/14/1986 DTaP Immunization 81818 Given 04/13/1986 IPV Inactive Poliovirus Vaccine 18778 Given 04/13/1986 DTaP Immunization 89858 Given 02/15/1986 IPV Inactive Poliovirus Vaccine 27344 Given 02/15/1986 DTaP Immunization Vital Signs Date Vital Result Comment 12/14/2018 7:49pm BP Systolic 120 mmHg BP Diastolic 70 mmHg Heart Rate 68 /min Body Temperature 98.6 F Respiratory Rate 20 /min Weight 205.00 lb 12/07/2017 9:30am BP Systolic 120 mmHg BP Diastolic 72 mmHg Heart Rate 70 /min Body Temperature 97.7 F Respiratory Rate 18 /min Height 67 inches 5'7" Weight 215.00 lb BMI (Body Mass Index) 33.7 kg/m2 Results Description No Information Available Procedures Date Code Description Status 12/22/2014 05736888 Mammogram Completed Medical Devices Description No Information Available Encounters Description No Information Available Assessments Date Code Description Provider 12/14/2018 H10.89 Other conjunctivitis REBA Hickman Plan of Treatment Future Appointment(s):03/22/2019 2:00 pm - Iris Borja M.D. at [facility]12/14/2018 - Amaya Boyle, FNPH10.89 Other conjunctivitisNew Medication:Trimethoprim Sulfate/Polymyxin B Sulfate 04626-5.1 Unit/ML-% - 1-2 drops affected eye four times a day x 3 daysComments:Mostly these are viruses and they go away without interventionWarm moist compresses with baby shampoo helpDon't scratch!New make up brushes, new mascaraWash hands frequentlyCall ELICEO if condition changes/worsens in any way Functional Status Description No Information Available Mental Status Description No Information Available Referrals Description No Information Available
[2018-12-22 21:10] VITALS: BP 135/76
--- NOTE | 2018-12-22 21:33 | ED ---
Throat Pain/Nasal Congestion - HPI Summary HPI Summary: 33 yr old with sore throat, some nasal congestion and cough. Onset three days. No fever. No drooling or stridor. The patient has no other complaints. Symptoms are moderate. 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 - History of Current Complaint Chief Complaint: UCRespiratory Time Seen by Provider: 12/22/18 21:05 - Allergies/Home Medications Allergies/Adverse Reactions: Allergies Allergy/AdvReac Type Severity Reaction Status Date / Time indomethacin [From Indocin] Allergy Hallucinati Verified 12/22/18 20:56 ons Home Medications: Home Medications Polymyx/Trimethoprim OPTH* [Polytrim OPHTH*] 1 drop BOTH EYES Q8H 12/22/18 [ History Confirmed 12/22/18] Prescribed Supplements For Ibs 1 dose PO SEE INSTRUCTIONS 12/22/18 [History] PMH/Surg Hx/FS Hx/Imm Hx Cardiovascular History: Denies: Hx Pacemaker/ICD Respiratory History: Reports: Hx Asthma - EXCERCISE INDUCED- NO INHALER, Hx Sleep Apnea GI History: Reports: Hx Irritable Bowel History: Reports: Hx Kidney Stones - HX OF Sensory History: Reports: Hx Contacts or Glasses - INSTRUCTS GIVEN Denies: Hx Hearing Aid Opthamlomology History: Reports: Hx Contacts or Glasses - INSTRUCTS GIVEN Neurological History: Reports: Hx Migraine - 1-2 TIMES PER MONTH- TREATS WITH IBUPROFEN Psychiatric History: Reports: Hx Anxiety - ON MEDICATION FOR, Hx Depression - ON MEDICATION FOR - Surgical History Surgery Procedure, Year, and Place: wisdom teeth-[facility]. RIGHT foot surgery-[facility]. Gallbladder 08/25/17 Hx Anesthesia Reactions: No Infectious Disease History: No Infectious Disease History: Denies: Hx Clostridium Difficile, Traveled Outside the in Last 30 Days - Family History Known Family History: Positive: Cardiac Disease, Hypertension, Diabetes - Social History Occupation: Employed Full-time Alcohol Use: Occasionally Substance Use Type: Reports: None Smoking Status (MU): Former Smoker Type: Cigarettes Amount Used/How Often: ON AND OFF SINCE 2003 Have You Smoked in the Last Year: No Review of Systems Constitutional: Negative Positive: Sore Throat, Nasal Discharge Positive: Cough All Other Systems Reviewed And Are Negative: Yes Physical Exam Triage Information Reviewed: Yes Vital Signs On Initial Exam: Initial Vitals Temp Pulse Resp BP Pulse Ox 97.9 F 75 15 135/76 99 12/22/18 20:59 12/22/18 20:59 12/22/18 20:59 12/22/18 20:59 12/22/18 20:59 Vital Signs Reviewed: Yes Appearance: Positive: Well-Appearing Skin: Positive: Warm, Skin Color Reflects Adequate Perfusion Head/Face: Positive: Normal Head/Face Inspection Eyes: Positive: EOMI ENT: Positive: Normal ENT inspection, Pharyngeal erythema, Nasal congestion, TMs normal Neck: Positive: Nontender Respiratory/Lung Sounds: Positive: Clear to Auscultation, Breath Sounds Present Cardiovascular: Positive: RRR. Negative: Murmur Abdomen Description: Negative: Distended Musculoskeletal: Positive: Strength/ROM Intact Neurological: Positive: Sensory/Motor Intact, Alert, Oriented to Person Place, Time, CN Intact II-III, Normal Gait, Speech Normal Psychiatric: Positive: Normal Diagnostics - Vital Signs Vital Signs Temp Pulse Resp BP Pulse Ox 12/22/18 20:59 97.9 F 75 15 135/76 99 - Laboratory Lab Results: Lab Results 12/22/18 Range/Units 21:02 Group A Strep Rapid Negative (Negative) Lab Statement: Any lab studies that have been ordered have been reviewed, and results considered in the medical decision making process. EENT Course/Dx - Course Course Of Treatment: 33 yr old with pharyngitis. Neg rapid strep. - Diagnoses Provider Diagnoses: Pharyngitis Discharge ED - Sign-Out/Discharge Documenting (check all that apply): Patient Departure All imaging exams completed and their final reports reviewed: No Studies - Discharge Plan Condition: Good Disposition: HOME Patient Education Materials: Pharyngitis (ED) Referrals: Iris Borja MD [Primary Care Provider] - - Billing Disposition and Condition Condition: GOOD Disposition: Home
== END 2018-12-22 21:37 | disposition home or self-care (01) ==
LOC: UCCORT 20:47
DX: J02.9 Acute pharyngitis, unspecified (principal); Z88.6 Allergy status to analgesic agent; Z87.891 Personal history of nicotine dependence
CPT/HCPCS: 87651; 99211; G0463